=== PATIENT | male | born 2000 | race Caucasian/White ===

== ENCOUNTER 2019-05-07 21:19 | Emergency (ER) | payer OTHER, MEDICAID ==
[~2019-05-07] VITALS: Ht 188 cm; Wt 99.8 kg
[2019-05-07 21:51] LABS: HEMATOCRIT 46.6 % (42.0-52.0); HEMOGLOBIN 15.8 gm/dL (14.0-18.0); MCH 30.6 pg (26.0-34.0); MCHC 33.9 g/dL (28.0-37.0); MCV 90.3 fL (80.0-100.0); MPV 8.6 fl. (7.2-11.1); RBC 5.17 mil/uL (4.50-6.00); RDW-CV 13.2 % (10.5-14.5); WBC 10.6 thou/uL (4.0-11.0)
[2019-05-07 22:06] LABS: CALCIUM 10.5 mg/dL (8.5-10.1); CREATININE 1.2 mg/dL (0.6-1.3); POTASSIUM 4.1 mmol/L (3.5-5.1)
[2019-05-07 22:11] LABS: ALBUMIN 4.7 g/dL (3.4-5.0); TOTAL BILIRUBIN 0.5 mg/dL (<0.1-1.0); TOTAL PROTEIN 8.4 g/dL (6.4-8.2)
[2019-05-07 22:20] LABS: SALICYLATE < 2.8 mg/dL (2.8-20.0)
[2019-05-07 22:21] LABS: ACETAMINOPHEN < 2 ug/mL (10-30); ALCOHOL < 10 mg/dL (<10)
[2019-05-07 23:08] LABS: URINE BILIRUBIN NEGATIVE (Negative); URINE BLOOD NEGATIVE (Negative); URINE CLARITY CLEAR; URINE COLOR YELLOW; URINE GLUCOSE-RANDOM NEGATIVE (Negative); URINE KETONES TRACE (Negative); URINE LEUKOCYTES NEGATIVE (Negative); URINE NITRITE NEGATIVE (Negative); URINE PROTEIN NEGATIVE (Negative); URINE UROBILINOGEN 0.2 E.U./dl (0.2-1.0)
[2019-05-07 23:15] LABS: AMP/METHAMP Negative (Negative); BARBITURATES Negative (Negative); BENZODIAZEPINES Negative (Negative); COCAINE Negative (Negative); METHADONE Negative (Negative); OPIATES Negative (Negative); PCP Negative (Negative); THC Negative (Negative)
[2019-05-08 17:53] VITALS: BP 100/72
== END 2019-05-08 17:53 ==
LOC: M.ERS 21:19
PROVIDERS: Personal Emergency Response Attendant
DX: R45.851 Suicidal ideations (principal)